=== PATIENT | male | born 1935 | race Two or more races ===

== ENCOUNTER 2022-01-18 23:24 | Emergency (ER) | payer OTHER ==
[~2022-01-18] VITALS: Ht 170.2 cm; Wt 70.3 kg
[2022-01-18] MEDS ORDERED: SIMVASTATIN5 MG PO (23:44)
[2022-01-19] MEDS ORDERED: DOLOGESIC-DF 51 EACH PO (03:07)
== END 2022-01-19 03:13 ==
LOC: ER 23:24
DX: B34.9 Viral infection, unspecified (principal); R68.83 Chills (without fever); Z20.822 Contact with and (suspected) exposure to COVID-19